=== PATIENT | male | born 1965 | race African-American/Black ===

== ENCOUNTER 2019-08-29 06:55 | Emergency (ER) | payer OTHER ==
[~2019-08-29] VITALS: Ht 188 cm; Wt 72.6 kg
[2019-08-29 06:55] VITALS: BP 128/77
[~2019-08-29 06:55] MED LIST: CLEOCIN HCL300 MG PO; NORCO 5-325 TA1 EACH PO
== END 2019-08-29 07:23 | disposition home or self-care (01) ==
LOC: ER 06:55
DX: S61.212A Laceration without foreign body of right middle finger without damage to nail, initial encounter (principal); S61.214A Laceration without foreign body of right ring finger without damage to nail, initial encounter; W22.8XXA Striking against or struck by other objects, initial encounter; Y93.89 Activity, other specified; Y92.89 Other specified places as the place of occurrence of the external cause; Y99.0 Civilian activity done for income or pay

== ENCOUNTER 2019-09-11 14:54 | Emergency (ER) | payer OTHER | END 2019-09-11 15:05 | disposition home or self-care (01) | LOC: ER 14:54 | DX: S21.212D Laceration without foreign body of left back wall of thorax without penetration into thoracic cavity, subsequent encounter (principal); S61.214D Laceration without foreign body of right ring finger without damage to nail, subsequent encounter; X58.XXXD Exposure to other specified factors, subsequent encounter ==

== ENCOUNTER → 2020-01-10 | Outpatient (CLI) | payer OTHER ==
[~2020-01-10] VITALS: Ht 188 cm; Wt 70.8 kg
--- NOTE | 2020-01-11 18:07 | PATH ---
[facility] [place] [address] PATHOLOGY RPT PROCEDURE Name: NAIF WINTERS Room #: REG [facility] M..#: [id number] Admission: 01/10/20 Date of : 65 Discharge: Report #: [id number] Path Case #: [id number] [facility] Accession Number: [id number] . 01 Material submitted: . PART A: ileo-cecal valve - POLYP AT ILEO-CECAL VALVE PART B: colon - BX OF ASCENDING COLON MASS. Modifiers: ascending PART C: colon - POLYP AT TRANSVERSE COLON BX. Modifiers: transverse PART D: colon - POLYP AT DESCENDING COLON. Modifiers: descending . 01 Clinical history: . screening . 02 Diagnosis: A. Polyp, at ileocecal valve, endoscopic biopsy: - Tubular adenoma. - Negative for high grade dysplasia. . B. Mass, ascending colon mass, endoscopic biopsy: - Fragment comprised of granulation tissue as well as crypts with mild architectural abnormality. - Background fragments showing non-specific reactive changes. - Negative for dysplasia or malignancy. . C. Polyp, transverse colon, endoscopic biopsy: - Tubular adenoma. - Negative for high grade dysplasia. . D. Polyp, at descending colon, endoscopic biopsy: - Tubular adenoma. - Negative for high grade dysplasia. LBQ 01/11/2020 1325 Local . 02 Comment: Part B: Examination shows one fragment with the appearance of granulation tissue as well as a few architecturally abnormal crypts. Active cryptitis, surface ulceration, crypt abscess formation, dysplastic changes, or desmoplastic changes within the stroma are not identified. Please note sample may not be entirely resources representative. Correlate clinically and follow-up as indicated. (IUV/db; 01/11/2020) . 02 Electronically signed: . Romelia Canseco MD, Pathologist NPI- [id number] . 01 Gross description: . [address] [address] PATHOLOGY RPT PROCEDURE Name: NAIF WINTERS Room #: REG [facility]#: [id number] Admission: 01/10/20 Date of : 65 Discharge: Report #: [id number] Path Case #: [id number] A. The specimen is received in formalin, labeled "Naif Winters, polyp at ileocecal valve" and consists of a fragment of pink-carr tissue measuring 0.3 x 0.3 x 0.3 cm which is entirely submitted in A1. . B. The specimen is received in formalin, labeled "Naif Winters, BX of ascending colon mass" and consists of multiple fragments of pink-carr tissue measuring 1.0 x 0.6 x 0.2 cm in aggregate which are entirely submitted in B1. . C. The specimen is received in formalin, labeled "Naif Winters, polyp at transverse colon BX" and consists of a fragment of pink-carr tissue measuring 0.3 x 0.3 x 0.2 cm which is entirely submitted in C1. . D. The specimen is received in formalin, labeled "Naif Winters, polyp at descending colon" and consists of a fragment of pink-carr tissue measuring 0.3 x 0.3 x 0.2 cm which is entirely submitted in D1. (SDY; 01/10/2020) SYU/SYU 01/10/2020 1850 Local . 02 Pathologist provided ICD-10: D12.0, D12.3, D12.4, Z12.11 . 02 CPT . 185821, 559080, 472573, 655369 Specimen Comment: A courtesy copy of this report has been sent to [phone], [phone] Specimen Comment: [id number] Specimen Comment: Report sent to / DR OLIVA Performed at: [address], [place], [place] [id number] MD Tobi Nathan MD Phone: [phone] Performed at: [address] [id number] MD Romelia Canseco MD Phone: [phone]
== END | disposition home or self-care (01) ==
LOC: GI 01-03 12:26
DX: Z12.11 Encounter for screening for malignant neoplasm of colon (principal); D12.0 Benign neoplasm of cecum; D12.3 Benign neoplasm of transverse colon; D12.4 Benign neoplasm of descending colon; K63.89 Other specified diseases of intestine; Z98.890 Other specified postprocedural states; Z79.899 Other long term (current) drug therapy; Z87.891 Personal history of nicotine dependence
CPT/HCPCS: 62110; 62900